=== PATIENT | female | born 1955 | race Caucasian/White ===

== ENCOUNTER 2021-09-04 10:59 | Emergency (ER) | payer OTHER ==
[~2021-09-04] VITALS: Ht 165.1 cm; Wt 53.1 kg
[2021-09-04 11:08] VITALS: BP 174/67
[2021-09-04] MEDS ORDERED: MORPHINE SULFATE 4 MG/ML SYR IM ONE (11:35)
--- NOTE | 2021-09-04 11:39 | NUR ---
DR RAO AT BEDSIDE EVALUATING PT
--- NOTE | 2021-09-04 12:01 | NUR ---
PT PLACED IN FABRICATED 4" ORTHO GLASS LEFT SUGAR TONG SPLINT AND WRAPPED WITH 3" STACEY WRAPS X3 AND ALSO PLACED IN LEFT SHOULDER SLING. CMS WNL BEFORE AND AFTER AND PT STATED THAT THEY TOLERATED SPLINT WELL. ERMD NOTIFIED.
[2021-09-04] MEDS ORDERED: ACET-9525 PO (13:25)
[2021-09-04 13:49] VITALS: BP 174/67
--- NOTE | 2021-09-04 13:49 | NUR ---
Patient discharged with v/s stable. Written and verbal after care instructions given and explained. Patient alert, oriented and verbalized understanding of instructions. Wheel Chair Assisted with to lobby. All questions addressed prior to discharge. ID band removed. Patient advised to follow up with PMD. Rx of HYDROCODONE-ACETAMINOPHEN given. Patient educated on indication of medication including possible reaction and side effects. Opportunity to ask questions provided and answered.
== END 2021-09-04 13:49 | disposition home or self-care (01) ==
LOC: MED 10:59
DX: S52.592A Other fractures of lower end of left radius, initial encounter for closed fracture (principal); Z88.0 Allergy status to penicillin; Z79.899 Other long term (current) drug therapy; W22.01XA Walked into wall, initial encounter; Y93.89 Activity, other specified; Y92.89 Other specified places as the place of occurrence of the external cause; Y99.8 Other external cause status
CPT/HCPCS: 29125; 72100; 73110; 96372; 99284; J2270